=== PATIENT | male | born 2000 | race Caucasian/White ===

== ENCOUNTER 2019-04-28 18:45 | Emergency (ER) | payer BC ==
[2019-04-28 19:37] VITALS: BP 126/75
--- NOTE | 2019-04-28 20:43 | UC ---
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 Pt took some pepto bismol earlier today and feels better now. Pt states his professor is requesting a school note that he was seen to be excused from class that he missed today. Pt states he feels better now." -here w/ his friend Varinder -no blood/melena -no vomiting -no fevers. -feels fine now. 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 Time Seen by Provider: 04/28/19 20:29 Pain Intensity: 0 - Allergy/Home Medications Allergies/Adverse Reactions: Allergies Allergy/AdvReac Type Severity Reaction Status Date / Time No Known Allergies Allergy Verified 04/28/19 19:38 Home Medications: Home Medications Bismuth Subsalicylate [Pepto-Bismol] 262 mg PO ONCE 04/28/19 [History Confirmed 04/28/19] Glycopyrrolate 1.5 mg PO BID 04/28/19 [History Confirmed 04/28/19] PMH/Surg Hx/FS Hx/Imm Hx Previously Healthy: Yes - Surgical History Surgical History: None - Family History Known Family History: Positive: Non-Contributory - Social History Alcohol Use: Weekly Substance Use Type: Marijuana Substance Use Comment - Amount & Last Used: occasionally Smoking Status (MU): Never Smoked Tobacco Type: eCigarettes, Smokeless Tobacco Review of Systems All Other Systems Reviewed And Are Negative: Yes Constitutional: Positive: Negative. Negative: Fever, Chills, Fatigue Skin: Positive: Negative. Negative: Rash Eyes: Positive: Negative ENT: Positive: Negative Respiratory: Positive: Negative Cardiovascular: Positive: Negative Gastrointestinal: Positive: Negative, Diarrhea - resolved Genitourinary: Positive: Negative Motor: Positive: Negative Neurovascular: Positive: Negative Musculoskeletal: Positive: Negative Neurological: Positive: Negative Psychological: Positive: Negative Is Patient Immunocompromised?: No Physical Exam Triage Information Reviewed: Yes Appearance: Well-Appearing, No Pain Distress, Well-Nourished Vital Signs: Initial Vital Signs Temp 99.1 F 04/28/19 19:31 Pulse 66 04/28/19 19:31 Resp 18 04/28/19 19:31 BP 126/75 04/28/19 19:31 Pulse Ox 100 04/28/19 19:31 Vital Signs Reviewed: Yes Eye Exam: Normal ENT Exam: Normal ENT: Positive: Pharynx normal, Uvula midline Neck exam: Normal Neck: Positive: Supple, Nontender, No Lymphadenopathy Respiratory Exam: Normal Respiratory: Positive: Lungs clear, Normal breath sounds, No respiratory distress, No accessory muscle use, Crackles, Rhonchi, Stridor Cardiovascular Exam: Normal Cardiovascular: Positive: RRR Abdominal Exam: Normal Abdomen Description: Positive: Nontender, Soft. Negative: Distended Musculoskeletal Exam: Normal Neurological Exam: Normal Psychological Exam: Normal Skin Exam: Normal Course/Dx - Course Course Of Treatment: diarrhea x < 24 hrs, resolved. he feels well. all sx resolved. [employer] school note - given for today - Differential Dx - Multi-Symptom Differential Diagnoses: Other - Viral enteritis - Diagnoses Provider Diagnosis: Diarrhea Discharge ED - Sign-Out/Discharge Documenting (check all that apply): Patient Departure All imaging exams completed and their final reports reviewed: No Studies - Discharge Plan Condition: Stable Disposition: HOME Patient Education Materials: Acute Diarrhea (ED) Forms: *School Release Referrals: No Primary Care Phys,NOPCP [Primary Care Provider] - Additional Instructions: Please follow up here or at student health if your symptoms return. - Billing Disposition and Condition Condition: STABLE Disposition: Home
== END 2019-04-28 20:50 | disposition home or self-care (01) ==
LOC: UCCORT 18:45
DX: R19.7 Diarrhea, unspecified (principal); R11.0 Nausea
CPT/HCPCS: 99201; G0463